=== PATIENT | male | born 1990 | race Caucasian/White ===

== ENCOUNTER 2023-04-10 05:45 | Emergency (ER) | payer SELFPAY ==
[~2023-04-10] VITALS: Ht 172.7 cm; Wt 104.3 kg
[2023-04-10 05:50] VITALS: BP 141/89; PULSE 90; RESP 16; TEMP 96.5; O2SAT 98
[2023-04-10 06:30] VITALS: BP 141/89; PULSE 90; RESP 16; TEMP 96.5; O2SAT 98
== END 2023-04-10 06:30 ==
LOC: MED 05:45
DX: Z02.89 Encounter for other administrative examinations (principal)
CPT/HCPCS: 99283

== ENCOUNTER 2023-05-03 01:19 | Emergency (ER) | payer SELFPAY ==
[~2023-05-03] VITALS: Ht 172.7 cm; Wt 104.3 kg
[2023-05-03 01:25] VITALS: BP 145/98; PULSE 86; RESP 16; TEMP 97.7; O2SAT 98
== END 2023-05-03 04:00 | disposition left against medical advice (07) ==
LOC: MED 01:19
DX: R10.9 Unspecified abdominal pain (principal); Z53.21 Procedure and treatment not carried out due to patient leaving prior to being seen by health care provider
CPT/HCPCS: 99281

== ENCOUNTER 2023-09-26 22:03 | Emergency (ER) | payer SELFPAY | END 2023-09-26 22:36 | disposition left against medical advice (07) | LOC: MED 22:03 | DX: R05.9 Cough, unspecified (principal); Z53.21 Procedure and treatment not carried out due to patient leaving prior to being seen by health care provider ==